=== PATIENT | female | born 2000 ===

== ENCOUNTER 2020-07-12 03:05 | Emergency (ER) | payer MEDICAID ==
--- NOTE | 2020-07-12 03:33 | EDM.PDOC ---
ED HPI GENERAL MEDICAL PROBLEM - General Stated Complaint: Cutting to left arm, denies suicidal Time Seen by Provider: 07/12/20 03:05 Source of Information: Reports: Patient History Limitations: Reports: No Limitations - History of Present Illness INITIAL COMMENTS - FREE TEXT/NARRATIVE: Pt. presents to ER via ambulance. Pt. had cut herself very superficially several times with a razor. She then took a picture of the injury and sent it to a classmate who called 911. Police state that the pt. denied any suicidal ideation. Denied any plan for self harm. She also does not feel she is a threat to others, and is not feeling homicidal or like harming anyone else. Pt. was refusing to go to the hospital and was restrained by police and transferred to ER via ambulance. Pt. has a history of depression. She states that she last was on medications for this in 2018. She states that the reason for cutting herself was not to harm herself, but to "feel". Onset: Today Onset Date: 07/12/20 Location: Reports: Upper Extremity, Left ED ROS GENERAL - Review of Systems Review Of Systems: See Below Constitutional: Reports: No Symptoms HEENT: Reports: No Symptoms Respiratory: Reports: No Symptoms Cardiovascular: Reports: No Symptoms Endocrine: Reports: No Symptoms GI/Abdominal: Reports: No Symptoms : Reports: No Symptoms Musculoskeletal: Reports: No Symptoms Skin: Reports: No Symptoms Neurological: Reports: No Symptoms Psychiatric: Reports: Other. Denies: Agitation, Anxiety, Confusion, Depression, Hallucinations, Homicidal Ideation, Suicidal Ideation Hematologic/Lymphatic: Reports: No Symptoms Immunologic: Reports: No Symptoms ED EXAM, GENERAL - Physical Exam Exam: See Below Exam Limited By: No Limitations General Appearance: Alert, WD/WN, No Apparent Distress Neurological: Alert, Oriented, CN II-XII Intact, Normal Cognition, Normal Gait, Normal Reflexes, No Motor/Sensory Deficits Psychiatric: Normal Affect, Normal Mood, Tearful Skin Exam: Warm, Dry, Intact, Normal Color, Other (several very superficial lacerations/abrasions to L forearm, none of which require sutures or other repair.) Course - Re-Assessments/Exams Free Text/Narrative Re-Assessment/Exam: Pt. was asked several times if she was suicidal and she stated that she was not. She is refusing further care in ER. She did contact for safety, and affirms that she will call 911 or return to ER if she feels as though she is a harm to herself at any time. She is talking to her friends/Mom on her phone. Departure - Departure Time of Disposition: 03:40 Disposition: Home, Self-Care 01 Clinical Impression: Deliberate self-cutting - Discharge Information Instructions: Self-Harming Behavior Information Additional Instructions: If you feel like harming yourself, please contact 911 or come to ER as discussed. You can also contact the [facility] at [phone] if you are feeling like you are a harm to yourself, or if you are interested in getting mental health after you leave. You are welcome to return to ER or call at any time you have questions. - Problem List Review Problem List Initiated/Reviewed/Updated: Yes - Assessment/Plan Plan: If you feel like harming yourself, please contact 911 or come to ER as d iscussed. You can also contact the [facility] at [phone] if you are feeling like you are a harm to yourself, or if you are interested in getting mental health after you leave. You are welcome to return to ER or call at any time you have questions.
== END 2020-07-12 03:26 | disposition home or self-care (01) ==
LOC: VM.ED 03:05
DX: S51.812A Laceration without foreign body of left forearm, initial encounter (principal); X78.8XXA Intentional self-harm by other sharp object, initial encounter
CPT/HCPCS: 99283